=== PATIENT | female | born 1975 | race Caucasian/White ===

== ENCOUNTER → 2021-05-30 | Outpatient (CLI) | payer OTHER ==
--- NOTE | 2021-05-30 19:45 | CONS ---
CONSULTATION DATE OF SERVICE: 05/30/2021 This 45-year-old lady has [facility] for her sleep problems, which include difficulties initiating sleep and multiple awakenings from sleep, episodes of sleep eating. HISTORY OF PRESENT ILLNESS/SLEEP-WAKE EVALUATION: Patient goes to bed around 8:30 p.m. and gets up in the morning around 7 a.m., on weekend about 9:30 a.m. She does have problems with falling asleep, although no TV in bedroom. She watches TV at night, usually sleeps on the side position. She snores extremely loudly. She wakes up from sleep 3 times with nocturia. Positive history of dry mouth, sleeptalking. No history of hypnagogic hallucinations, sleep paralysis or cataplexy. In the morning the patient wakes up tired, has difficulties paying attention, worries about her sleep, has problems with concentration, irritability, depression and anxiety. Hilbert Sleepiness Scale is in extremely low range, only 1. She has a positive history of restless leg symptoms. PAST MEDICAL HISTORY: Positive for acid reflux, anxiety. PAST SURGICAL HISTORY: , tubal ligation. MEDICATIONS: 1. Cymbalta 60 mg once a day. 2. Vistaril 25 mg up to 3 times a day. 3. Buspirone 10 mg up to 3 times a day. 4. Flexeril 10 mg once a day. 5. Omeprazole 20 mg once a day. SOCIAL HISTORY: Positive for smoking; quit 4 years ago. Alcohol consumption: None at the present time. FAMILY HISTORY: Asthma, sinus problems. REVIEW OF SYSTEMS: Multiple awakenings from sleep, loud snoring, difficulties initiating sleep. No fevers. No double vision. No recent chest pain. No shortness of breath. No abdominal pain. No bleeding episodes. No blood in the urine. No seizure episodes. PHYSICAL EXAMINATION: GENERAL: Pleasant lady without distress. VITAL SIGNS: BP 120/87, HR around 100, RR 15, height 5 feet 4-3/4 inches, weight 190.2 pounds, body mass index 31.9, temperature 97.7, oxygen saturation at room air 96%. HEENT: PERRLA, EOMI, evaluation of oropharynx showed tongue protrudes midline. Low position of soft palate; Mallampati III. NECK: Supple, no JVD. Thyroid is not palpable. Neck measures 14-1/2 inches in circumference. LUNGS: Clear to percussion and to auscultation. Good air exchange. No wheezing or rhonchi. HEART: S1, S2 regular. No murmurs, gallops, or rubs. ABDOMEN: Slightly obese. EXTREMITIES: No clubbing or cyanosis. DOMESTIC VIOLENCE ADVOCATE: Awake, alert, and oriented X3. Cranial nerves 2 to 7 intact. There is no fasciculation or atrophy. noted. No focal deficits observed. IMPRESSION: 1. Loud snoring, multiple awakenings from sleep with nocturia, low position of soft palate, Mallampati III; obstructive sleep apnea-hypopnea syndrome. 2. Difficulties to initiate sleep secondary to anxiety, possibly restless leg syndrome and psychophysiological insomnia. 3. Anxiety. 4. Acid reflux. 5. Sleep eating. 6. Status post section. 7. Status post tubal ligation. PLAN: 1. I discussed with the patient psychological techniques for treatment of insomnia, including stimulus control, paradoxical intention, worry time, changes of bedtime to 11 p.m., no watching clock. 2. Polysomnography for evaluation of patient's breathing during sleep. I would prefer polysomnography because the patient has insomnia, and home sleep apnea test may not be reliable. 3. CPAP/BiPAP titration if sleep study confirms obstructive sleep apnea-hypopnea syndrome. 4. Preferable position during sleep on the side. 5. No driving if patient feels any sleepiness. 6. I will see patient for follow up visit to explain results of testing and following plan. Thank you very much for referring this patient for consultation. Sincerely, Trae Junior MD, PhD, FAASM Diplomat of [employer] Sleep Medicine [employer] of [employer] [facility] [place] MMODL / IJN: [id number] /
== END ==
LOC: SLEEP 13:49
PROVIDERS: ATTEND Internal Medicine
DX: G47.33 Obstructive sleep apnea (adult) (pediatric) (principal); F41.9 Anxiety disorder, unspecified; K21.9 Gastro-esophageal reflux disease without esophagitis; F50.89 Other specified eating disorder; Z87.891 Personal history of nicotine dependence; Z79.899 Other long term (current) drug therapy; Z87.59 Personal history of other complications of pregnancy, childbirth and the puerperium; Z98.51 Tubal ligation status
CPT/HCPCS: 99202